=== PATIENT | female | born 1995 | race Caucasian/White ===

== ENCOUNTER 2016-11-06 04:40 | Emergency (ER) | payer BC, OTHER ==
[2016-11-06 05:18] LABS: Urine Bacteria 2+ (Absent); Urine Bilirubin Negative (Negative); Urine Glucose Negative (Negative); Urine Nitrite Negative (Negative)
[2016-11-06] MEDS ORDERED: Phenazopyridine TAB* 100 MG PO ONE (05:38)
[2016-11-06] MEDS ORDERED: Sulfamethox/Trimethoprim DS 800/160* TAB PO ONE (05:38)
[2016-11-06 05:50] LABS: UR Preg Internal Control QC Line Present
[2016-11-06 05:52] VITALS: BP 118/70
--- NOTE | 2016-11-06 06:09 | ED ---
I, Oh,Christine, scribed for Nino Holland MD on 11/06/16 at 0541 . 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 Voiding makes the bladder pain worse. Pt decided to visit ED when she became concerned with UTI. She denies any previous episode of UTI. - History of Current Complaint Chief Complaint: EDUrogenitalProblems Stated Complaint: POSS UTI/DELUCA TO URINATE/BLOOD IN URINE Hx Obtained From: Patient Onset/Duration: Started Days Ago - 2 days ago, Still Present Pain Intensity: 6 Location of Pain: Suprapubic Pain Characteristics: Dull, Burning Associated Signs and Symptoms: Positive: Dysuria, Abdominal Pain - suprapubic pain, UTI Symptoms - Allergy/Home Medications Allergies/Adverse Reactions: Allergies Allergy/AdvReac Type Severity Reaction Status Date / Time No Known Allergies Allergy Verified 11/06/16 04:56 PMH/Surg Hx/FS Hx/Imm Hx Musculoskeletal History: Denies: Hx Rheumatoid Arthritis, Hx Osteoporosis Infectious Disease History: No Infectious Disease History: Denies: Traveled Outside the [place] in Last 30 Days - Family History Known Family History: Negative: Cardiac Disease, Hypertension, Diabetes - Social History Alcohol Use: None Hx Substance Use: No Substance Use Type: Reports: None Hx Tobacco Use: No Smoking Status (MU): Never Smoked Tobacco Review of Systems Negative: Fever Positive: Abdominal Pain - suprapubic pain Positive: dysuria, urgency - increased urgency All Other Systems Reviewed And Are Negative: Yes Physical Exam Triage Information Reviewed: Yes Vital Signs On Initial Exam: Initial Vitals Temp Pulse Resp BP Pulse Ox 98.4 F 80 14 117/72 100 11/06/16 04:44 11/06/16 04:44 11/06/16 04:44 11/06/16 04:44 11/06/16 04:44 Vital Signs Reviewed: Yes Appearance: Positive: No Pain Distress, Thin Skin: Positive: Warm Head/Face: Positive: Normal Head/Face Inspection Eyes: Positive: ADDISON Neck: Positive: Supple Respiratory/Lung Sounds: Positive: Clear to Auscultation, Breath Sounds Present Cardiovascular: Positive: RRR Abdomen Description: Positive: Nontender, Soft. Negative: CVA Tenderness (R), CVA Tenderness (L) Bowel Sounds: Positive: Present Musculoskeletal: Positive: Strength/ROM Intact Neurological: Positive: Alert, Oriented to Person Place, Time Psychiatric: Positive: Affect/Mood Appropriate - [place] Coma Scale Coma Scale Total: 15 Diagnostics - Vital Signs Vital Signs Temp Pulse Resp BP Pulse Ox 11/06/16 04:44 98.4 F 80 14 117/72 100 - Laboratory Lab Results: Lab Results 11/06/16 Range/Units 04:49 Urine Color Yellow Urine Appearance Cloudy Urine pH 7.0 (5-9) Ur Specific [place] 1.002 L (1.010-1.030) Urine Protein 2+(100 mg/dl) H (Negative) Urine Ketones Negative (Negative) Urine Blood 3+ H (Negative) Urine Nitrate Negative (Negative) Urine Bilirubin Negative (Negative) Urine Urobilinogen Negative (Negative) Ur Leukocyte Esterase 3+ H (Negative) Urine WBC (Auto) 3+(>20/hpf) H (Absent) Urine RBC (Auto) 3+(>10/hpf) H (Absent) Ur Squamous Epith Cells Present H (Absent) Urine Bacteria 2+ H (Absent) Urine Glucose Negative (Negative) Lab Statement: Any lab studies that have been ordered have been reviewed, and results considered in the medical decision making process. GIGU Course/Dx - Diagnoses Provider Diagnoses: UTI (urinary tract infection) Discharge - Discharge Plan Condition: Stable Disposition: HOME Prescriptions: Phenazopyridine 200 mg (NF) [Pyridium 200 MG tab] 200 mg PO TID #5 tab Sulfamethox/Trimethoprim DS* [Bactrim DS 800/160 TAB*] 1 tab PO BID #14 tab Patient Education Materials: Sulfamethoxazole/Trimethoprim (By mouth), Phenazopyridine (By mouth), Urinary Tract Infection in Women (ED) Referrals: [facility] IVORY Borges [Primary Care Provider] - 2 Days The documentation as recorded by the Gama colindres Soohyun accurately reflects the service I personally performed and the decisions made by , Nino Holland MD.
== END 2016-11-06 05:51 | disposition home or self-care (01) ==
LOC: ED 04:40
DX: N39.0 Urinary tract infection, site not specified (principal); R10.30 Lower abdominal pain, unspecified; R30.0 Dysuria
CPT/HCPCS: 81003; 81015; 81025; 87077; 87086; 87186; 99282; A9270-GY